=== PATIENT | male | born 1960 | race Caucasian/White ===

== ENCOUNTER 2021-04-22 23:42 | Inpatient (IN) ==
[2021-04-23] MEDS ORDERED: *HR* HYDROmorphone 2 MG/ML SYRINGE IVP ONE (00:46)
[2021-04-23] MEDS ORDERED: Ondansetron 4 MG/2 ML VIAL IVP ONE (00:46)
[2021-04-23] MEDS ORDERED: *HR* HYDROmorphone (PF) 1 MG/ML SYRINGE IVP ONE (01:48)
[2021-04-23] MEDS ORDERED: diazePAM 10 MG/2 ML SYRINGE IVP ONE (02:42)
[2021-04-23 03:12] LABS: Basophils # 0.1 K/mcL (0.0-0.2); Basophils % 0.4 %; Eosinophils # 0.1 K/mcL (0.0-0.6); Eosinophils % 0.3 %; Hematocrit 43.3 % (37.5-50.1); Hemoglobin 14.2 g/dL (12.9-16.9); Immature Granulocytes % 0.3 % (0-4); Lymphocytes # 1.6 K/mcL (0.6-4.6); Lymphocytes % 8.4 %; Mean Corpuscular HGB Conc 32.8 g/dL (31.6-35.5); Mean Corpuscular Hemoglobin 29.5 pg (28.0-33.3); Mean Corpuscular Volume 89.8 fL (83.0-100.0); Mean Platelet Volume 9.6 fL (9.4-12.4); Monocytes # 0.7 K/mcL (0.0-1.3); Monocytes % 3.5 %; Neutrophils # 16.6 K/mcL (1.6-8.9); Platelet Count 283 K/mcL (140-400); Red Blood Count 4.82 M/mcL (4.19-5.50); Red Cell Distribution Width 12.7 % (11.5-14.5); Segmented Neutrophils % 87.1 %
[2021-04-23 03:15] LABS: BUN/Creatinine Ratio 13 (6-26); Blood Urea Nitrogen 13 mg/dL (6-20); Calcium 9.3 mg/dL (8.6-10.3); Carbon Dioxide 26 mEq/L (23-29); Chloride 103 mEq/L (98-107); Glucose 124 mg/dL (70-105); Osmolality,Calculated 288 (280-300); Potassium 3.8 mEq/L (3.5-5.1); Sodium 138 mEq/L (136-145); eGFR For African Americans > 60 (> 60); eGFR For Non-African Americans > 60 (> 60)
[2021-04-23 03:33] LABS: Influenza A PCR Negative (Negative); Influenza B PCR Negative (Negative); Resp. Syncytial Virus PCR Negative (Negative)
[2021-04-23 03:39] LABS: SARS-CoV-2 by PCR (In House) Negative (Negative)
[2021-04-23 04:45] LABS: Bilirubin,Urine Negative (Negative); Blood,Urine Negative (Negative); Clarity,Urine Clear (Clear); Color,Urine Light-Yellow (Yellow); Glucose,Urine (UA) Normal (Normal); Ketones,Urine Negative (Negative); Leukocyte Esterase,Urine Negative (Negative); Nitrite,Urine Negative (Negative); Protein,Urine Trace mg/dL (Neg-Trace); Specific Gravity,Urine 1.023 (1.010-1.025); Urobilinogen,Urine Normal (Normal)
[2021-04-23] MEDS ORDERED: Naloxone 0.4 MG/ML INJ IVP PRN (04:52)
[2021-04-23] MEDS ORDERED: Ondansetron 4 MG/2 ML VIAL IVP PRN ×2 (04:52→19:12)
[2021-04-23] MEDS ORDERED: Acetaminophen 325 MG TABLET PO PRN (04:52)
[2021-04-23 04:59] LABS: Amphetamine Screen,Urine Negative ng/mL (Cutoff=1000); Barbiturate Screen,Urine Negative ng/mL (Cutoff=200); Benzodiazepines Screen,Urine Positive ng/mL (Cutoff=200); Cannabinoid Screen,Urine Positive ng/mL (Cutoff = 50); Cocaine Screen,Urine Negative ng/mL (Cutoff= 300); Opiate Screen,Urine Positive ng/mL (Cutoff=300); Phencyclidine Screen,Urine Negative ng/mL (Cutoff=25)
[2021-04-23] MEDS: 0.9 % Sodium Chloride 1,000 ML IVC SCH ×2 (05:09→13:43)
[2021-04-23] MEDS: Ketorolac 30 MG/ML VIAL IVP PRN ×2 (06:27→23:51)
[2021-04-23 06:45] LABS: Prothrombin Time 11.9 Seconds (9.4-12.1)
[2021-04-23] MEDS ORDERED: Morphine Sulfate 2 MG/ML SYRINGE IVP PRN (08:53)
[2021-04-23] MEDS: *HR* OxyCODONE Immed Rel 5 MG TABLET PO PRN ×3 (09:19→17:05)
[2021-04-23] MEDS ORDERED: Promethazine 6.25 MG in Water for inj. (sterile) 20 ML IVPB PRN (19:12)
[2021-04-23] MEDS ORDERED: *HR* OxyCODONE Immed Rel 5 MG TABLET PO PRN (19:12)
[2021-04-23] MEDS ORDERED: *HR* HYDROmorphone PF 0.5 MG/0.5 ML SYRINGE IVP PRN (19:12)
[2021-04-23] MEDS ORDERED: *HR* Succinylcholine 200 MG/10 ML VIAL IVP ONE (19:43)
[2021-04-23] MEDS ORDERED: *HR* FentaNYL (PF) 100 MCG/2 ML VIAL ONE ×2 (19:43→20:34)
[2021-04-23] MEDS ORDERED: Sugammadex Sodium 200 MG/2 ML VIAL IV ONE (19:43)
[2021-04-23] MEDS ORDERED: Lidocaine -MPF 2% 2 ML VIAL ONE (19:43)
[2021-04-23] MEDS ORDERED: *HR* Rocuronium Bromide 50 MG/5 ML VIAL ONE (19:43)
[2021-04-23] MEDS ORDERED: *HR* Propofol 200 MG/20 ML VIAL IVP ONE (19:44)
[2021-04-23] MEDS ORDERED: *HR* Midazolam HCl 2 MG/2 ML VIAL ONE (19:44)
[2021-04-23] MEDS ORDERED: *HR* HYDROcodone/Acet 5/325 mg TABLET PO PRN (20:07)
[2021-04-23] MEDS ORDERED: Clindamycin 600 MG/50 ML 0 MG/0 ML IV.SOLN IVPB ONE (20:09)
[2021-04-23] MEDS ORDERED: Clindamycin 900 MG/50 ML 900 MG/50 ML IV.SOLN IVPB ONE (20:09)
[2021-04-23] MEDS ORDERED: EPHEDrine 50 MG/ML VIAL ONE (21:24)
[2021-04-23] MEDS: Ringers Solution, Lactated 1,000 ML IVC SCH (23:51)
[2021-04-23] MEDS: Clindamycin 900 MG/50 ML 900 MG/50 ML IV.SOLN IVPB SCH (23:51)
[2021-04-24] MEDS: *HR* OxyCODONE Immed Rel 5 MG TABLET PO PRN ×5 (03:00→20:47)
[2021-04-24 05:13] LABS: Basophils % 0.2 %
[2021-04-24 05:15] LABS: Hematocrit 35.8 % (37.5-50.1); Hemoglobin 11.6 g/dL (12.9-16.9); Immature Granulocytes % 0.6 % (0-4); Immature Platelets 7.8 % (1.1-6.1); Lymphocytes % 7.9 %; Mean Corpuscular HGB Conc 32.4 g/dL (31.6-35.5); Mean Corpuscular Hemoglobin 29.4 pg (28.0-33.3); Mean Corpuscular Volume 90.9 fL (83.0-100.0); Mean Platelet Volume 10.7 fL (9.4-12.4); Monocytes % 6.8 %; Platelet Count 146 K/mcL (140-400); Red Blood Count 3.94 M/mcL (4.19-5.50); Red Cell Distribution Width 12.8 % (11.5-14.5); Segmented Neutrophils % 84.5 %; White Blood Count 14.5 K/mcL (4.3-11.1)
[2021-04-24 05:21] LABS: Lymphocytes # 1.2 K/mcL (0.6-4.6); Neutrophils # 12.3 K/mcL (1.6-8.9)
[2021-04-24 05:43] LABS: BUN/Creatinine Ratio 11 (6-26); Blood Urea Nitrogen 8 mg/dL (6-20); Calcium 8.4 mg/dL (8.6-10.3); Carbon Dioxide 20 mEq/L (23-29); Chloride 108 mEq/L (98-107); Glucose 123 mg/dL (70-105); Magnesium 1.8 mg/dL (1.6-2.6); Osmolality,Calculated 284 (280-300); Potassium 3.9 mEq/L (3.5-5.1); Sodium 137 mEq/L (136-145); eGFR For African Americans > 60 (> 60); eGFR For Non-African Americans > 60 (> 60)
[2021-04-24] MEDS: *HR* Enoxaparin 40 MG/0.4 ML SYRINGE SQ SCH (06:56)
[2021-04-24] MEDS: Clindamycin 900 MG/50 ML 900 MG/50 ML IV.SOLN IVPB SCH (07:56)
[2021-04-24] MEDS: Ketorolac 30 MG/ML VIAL IVP PRN (11:38)
[2021-04-24] MEDS: Ringers Solution, Lactated 1,000 ML IVC SCH (15:08)
[2021-04-25] MEDS: *HR* OxyCODONE Immed Rel 5 MG TABLET PO PRN ×2 (02:51→07:59)
[2021-04-25 05:12] LABS: Hematocrit 31.5 % (37.5-50.1); Hemoglobin 10.4 g/dL (12.9-16.9); Mean Corpuscular Hemoglobin 29.8 pg (28.0-33.3); Mean Corpuscular Volume 90.3 fL (83.0-100.0); Mean Platelet Volume 9.7 fL (9.4-12.4); Platelet Count 205 K/mcL (140-400); Red Blood Count 3.49 M/mcL (4.19-5.50); Red Cell Distribution Width 12.9 % (11.5-14.5); White Blood Count 9.8 K/mcL (4.3-11.1)
[2021-04-25] MEDS: *HR* Enoxaparin 40 MG/0.4 ML SYRINGE SQ SCH (05:56)
[2021-04-25] MEDS: Ringers Solution, Lactated 1,000 ML IVC SCH (06:52)
[2021-04-25 07:50] VITALS: BP 136/71
== END 2021-04-25 10:47 | disposition home or self-care (01) | DRG 482 ==
LOC: 3BNU 23:42 → EMEROOARM 23:42 → SUATTDRO 04-23 04:19 → 3BNU 04-23 04:38 → SUATTDRO 04-23 16:59
PROVIDERS: ADMIT Student in an Organized Health Care Education/Training Program; ATTEND Registered Nurse